=== PATIENT | female | born 1990 | race Caucasian/White ===

== ENCOUNTER 2018-07-17 21:48 | Emergency (ER) | payer OTHER ==
[~2018-07-17] VITALS: Ht 162.6 cm; Wt 59.0 kg
[2018-07-17 22:02] VITALS: BP 126/67
[2018-07-17] MEDS ORDERED: HYDR-3135 PO (22:37)
[2018-07-17] MEDS ORDERED: HYDROcodone/APAP 5/325MG 1 TAB TABLET PO ONE (23:00)
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
== END 2018-07-17 22:55 | disposition home or self-care (01) ==
LOC: ER 21:48
DX: S06.0X0A Concussion without loss of consciousness, initial encounter (principal); S49.91XA Unspecified injury of right shoulder and upper arm, initial encounter; W51.XXXA Accidental striking against or bumped into by another person, initial encounter; Y93.72 Activity, wrestling; Y92.89 Other specified places as the place of occurrence of the external cause; Y99.8 Other external cause status
CPT/HCPCS: 73030; 99283

== ENCOUNTER 2018-10-02 15:15 | Emergency (ER) | payer OTHER ==
[~2018-10-02] VITALS: Ht 162.6 cm; Wt 63.5 kg
[~2018-10-02 15:15] MED LIST: HYDR-3135 PO
[2018-10-02 15:28] VITALS: BP 120/57
[2018-10-02] MEDS ORDERED: LIDOCAINE 1% PF 2 ML VIAL. INJ ONE (15:45)
[2018-10-02] MEDS ORDERED: SULF1TAB24 PO (16:06)
[2018-10-02] MEDS ORDERED: HYDR-3164 PO (16:08)
--- NOTE | 2018-10-02 16:08 | PHYS DOC ---
Past Medical History Past Medical History: No Pertinent History Past Surgical History: No Surgical History Alcohol Use: None Drug Use: None Adult General Chief Complaint Chief Complaint: ABSCESS HPI HPI Patient is a 28 year old female who presents with an infected earobe that started from a piercing site. She has a noticeable pus pool and swelling noted. She denies fever. Review of Systems Review of Systems Constitutional: Denies fever or chills [] Respiratory: Denies cough or shortness of breath [] Cardiovascular: No additional information not addressed in HPI [] GI: Denies abdominal pain, nausea, vomiting, bloody stools or diarrhea [] : Denies dysuria or hematuria [] Musculoskeletal: Denies back pain or joint pain [] Integument: See HPI Neurologic: Denies headache, focal weakness or sensory changes [] Endocrine: Denies polyuria or polydipsia [] All other systems were reviewed and found to be within normal limits, except as documented in this note. Current Medications Current Medications Current Medications Medications (Trade) Dose Ordered Sig/Estela Start Time Stop Time Status Last Admin Dose Admin Lidocaine HCl (Xylocaine-Mpf 1% 2ml Vial) 2 ml 1X ONCE 10/02/18 15:45 10/02/18 15:46 DC 10/02/18 16:03 2 ML Allergies Allergies Allergies Coded Allergies Type Severity Reaction Last Updated Verified No Known Drug Allergies 12/29/13 No Physical Exam Physical Exam Constitutional: Well developed, well nourished, no acute distress, non-toxic appearance. [] Cardiovascular:Heart rate regular rhythm, no murmur [] Lungs & Thorax: Bilateral breath sounds clear to auscultation [] Abdomen: Bowel sounds normal, soft, no tenderness, no masses, no pulsatile masses. [] Skin: pus pool to right earlobe with erythema and edema Neurologic: Alert and oriented X 3, normal motor function, normal sensory function, no focal deficits noted. [] Psychologic: Affect normal, judgement normal, mood normal. [] Current Patient Data Vital Signs EKG EKG [] Radiology/Procedures Radiology/Procedures []The eralobe was numbed with lidocaine and a small incision was made to drain the pus. The patient tolerated the procedure well. Course & Med Decision Making Course & Med Decision Making Pertinent Labs and Imaging studies reviewed. (See chart for details) [] Dragon Disclaimer Dragon Disclaimer This electronic medical record was generated, in whole or in part, using a voice recognition dictation system. Departure Departure Impression: Primary Impression: Abscess of right earlobe Additional Impression: Cellulitis of earlobe Disposition: 01 HOME, SELF-CARE Condition: STABLE Referrals: NO PCP (PCP) Patient Instructions: Abscess, Cellulitis Additional Instructions: Take the medication as directed. Follow-up with your primary care provider for recheck in 4 days if not improving or return to the emergency department if worsening. Do not drive or operate heavy machinery while taking the pain medication. Scripts Hydrocodone/Apap 5-325 (NORCO 5-325 TABLET) 1 Each Tablet 1 TAB PO PRN Q6HRS PRN for PAIN, #10 TAB 0 Refills Prov: NICOLE GUIDRY APRN 10/02/18 Sulfamethoxazole/Trimethoprim (BACTRIM DS TABLET) 1 Each Tablet 1 TAB PO BID for abscess, #20 TAB Prov: NICOLE GUIDRY APRN 10/02/18 Problem Qualifiers NICOLE GUIDRY APRN Oct 02, 2018 16:08
== END 2018-10-02 16:30 | disposition home or self-care (01) ==
LOC: ER 15:15
DX: H60.01 Abscess of right external ear (principal); H60.11 Cellulitis of right external ear
CPT/HCPCS: 96372; 99283